=== PATIENT | female | born 1955 | race Caucasian/White ===

== ENCOUNTER → 2023-09-03 19:14 | Outpatient (REF) | payer BC, SELFPAY | LOC: WDC 19:14 | PROVIDERS: ATTENDING PHYSICIAN Physician Assistant | DX: Z12.31 Encounter for screening mammogram for malignant neoplasm of breast (principal) | CPT/HCPCS: 77063; 77067 ==

== ENCOUNTER 2024-06-22 08:54 | Emergency (ER) | payer BC, SELFPAY ==
[2024-06-22 09:02] VITALS: BP 177/116
--- NOTE | 2024-06-22 09:57 | ED.GENMED ---
History of Present Illness
General
Chief Complaint: Abdominal Symptoms
Source: patient
Exam Limitations: none
Time Seen by Provider: 06/22/24 09:45
History of Present Illness
History of Present Illness:
68-year-old female presents with epigastric discomfort and vomiting with associated loose stools. This has been intermittent over the past month but worse recently. She did [place] and developed more ear discomfort.
Upon return here she was seen by the family doctor thought to have ear infection. She has been on Zithromax. She denies any blood in the vomit or the stool. The pain is made worse with eating. She denies associated chest pain or shortness of
breath.
Phy Exam
Physical Exam
Physical Exam:
General: Well-appearing female no acute respiratory distress
HEENT: Normocephalic atraumatic
Heart: Regular rate and rhythm no murmurs
Lungs: Clear no wheeze
Abdomen is soft tender to the epigastric region no guarding rebound normal bowel sounds nondistended
Extremities: No cyanosis or edema
Course
Orders/Labs/Results
Orders:
Orders
06/22/24 09:55
Norovirus by PCR Urgent
SHEEBA Source: Feces/Stool
Specimen Description:
STOOL [C difficile Antigen & Toxins] Urgent
SHEEBA Source: Feces/Stool
Specimen Description:
Stool Culture Urgent
SHEEBA Source: Feces/Stool
Specimen Description:
0.9% Sodium Chloride 1000 ml [Nss] 1,000 ml IV BOLUS
Famotidine [Pepcid] 20 mg IV NOW STA
Ondansetron Injectable [Zofran] 4 mg IV NOW STA
US Abdomen Complete/Upper Urgent
Comment:
Reason For Exam: epigastric pain
06/22/24 10:11
Complete Blood Count/With Diff Urgent
06/22/24 11:18
Comprehensive Metabolic Panel Urgent
Lipase Urgent
Abnormal Lab Results
06/22/24 06/22/24
10:11 11:18
Absolute Neuts (auto) 8.0 H 10^3/uL
(1.4-6.5)
Absolute Lymphs (auto) 0.9 L 10^3/uL
(1.2-3.4)
Neutrophils % 83.7 H %
(42.2-75.2)
Lymphocytes % 9.8 L %
(20.5-51.1)
Creatinine 0.5 L mg/dL
(0.6-1.0)
Glucose 115 H mg/dl
(70-99)
06/22/24 10:11
06/22/24 11:18
Vital Signs
Initial and Last Documented VS:
Initial Vital Signs
Temp Pulse BP Pulse Ox
98.3 F 101 177/116 97
06/22/24 09:02 06/22/24 09:02 06/22/24 09:02 06/22/24 09:02
Last Documented Vital Signs
Temp Pulse Resp BP Pulse Ox
98.3 F 82 17 111/76 98
06/22/24 09:02 06/22/24 11:45 06/22/24 11:45 06/22/24 11:00 06/22/24 10:27
MDM/Problems Addressed
Differential Diagnosis Includes:
Patient with epigastric pain vomiting and diarrhea. Consider gastritis versus viral illness versus biliary colic and electrolyte abnormalities will check labs. Stool studies ordered if patient able to go. Fluids Zofran Pepcid ordered and will
start with ultrasound of the abdomen
*Critical Care Note
Total Time (30-74mins, 75-104mins- exclusive of procedures): Not Applicable
Update Note
Update Note:
Patient reexamined appears well labs reviewed without significant finding. Patient did relate that her friends she spent some time with last week also sick with similar symptoms including vomiting and diarrhea. Most likely a viral related issue.
No stool sample provided today. Ultrasound was negative. Stable for discharge. Will prescribe Zofran if needed.
ED Attending Note
-
Portions of this chart may have been created with voice recognition software.� Occasional wrong word or��sound alike� substitutions may have occurred due to the inherent limitations of voice recognition software.
Discharge Plan
Departure
Patient Disposition: Home (Routine Discharge)
Date of Disposition: 06/22/24
Time of Disposition: 13:17
Patient with high blood pressure during this ER visit?: No
Discharge Problem:
Vomiting
Instructions: Nausea and Vomiting, Adult (DC)
Prescriptions:
New
ondansetron 4 mg tablet,disintegrating
4 mg PO Q8H PRN (Reason: nausea and vomiting) Qty: 10 0RF
No Action
echinacea 400 MG capsule
400 mg PO DAILY
amlodipine [Norvasc] 5 MG tablet
5 mg PO DAILY
garlic 500 MG capsule
1,500 mg PO DAILY
lorazepam 0.5 MG tablet
0.5 mg PO PRN PRN (Reason: anxiety)
albuterol sulfate 1 PUFF HFA aerosol inhaler
2 puff inhalation PRN PRN (Reason: sob)
[id number]-[id number]-[id number] [Airborne (lysine HCl)] 1 EACH tablet, effervescent
1 ea PO DAILY
hydrochlorothiazide 12.5 MG tablet
12.5 mg PO DAILY
[id number]-epa-fish oil 1 EACH capsule,delayed release(DR/EC)
1 ea PO DAILY
turmeric 400 MG capsule
800 mg PO DAILY
Complete B 250 MG Tab
1 tab PO DAILY
Quercetin & Bromelain 1 TAB Tab
1 tab PO DAILY
Vitamin B12 500 MCG Tab
1 tab PO DAILY
ondansetron [Zofran ODT] 8 MG tablet,disintegrating
4 mg PO Q8HPRN PRN (Reason: nausea) Qty: 9 0RF
Rx Instructions:
1 every 8 hour as needed for nausea
oxycodone 5 MG tablet
5 mg PO Q4HPRN PRN (Reason: pain) Qty: 60 0RF
Rx Instructions:
1-2 every 4-6 hour as needed for pain
sennosides-docusate sodium [Senna-S] 1 EACH tablet
1 ea PO BID Qty: 60 0RF
aspirin 325 MG tablet,delayed release (DR/EC)
325 mg PO DAILY Qty: 30 0RF
Rx Instructions:
one daily to prevent blood clots
docusate sodium [Colace] 100 MG capsule
100 mg PO BID Qty: 60 0RF
acetaminophen [Tylenol Arthritis] 650 MG tablet extended release
650 mg PO Q4HPRN PRN (Reason: pain) Qty: 60 0RF
Rx Instructions:
1 every 4 hours as needed for pain
DO NOT EXCEED 4000mg in a 24 HOUR PERIOD
Referrals:
Stef Grewal MD [Family Provider] -
Activity Restrictions/Additional Instructions:
Drink plenty clear liquids. Use Zofran if needed for nausea.
Interventions
Interventions:
*Risk Screen - Suicide Last Done: 06/22/24 10:00
*General Assessment Last Done: 06/22/24 10:00
*Neglect/Abuse Screening Last Done: 06/22/24 10:00
ED- Fall Risk Assessment Last Done: 06/22/24 10:27
*ED COVID-19 Vaccine History Last Done: 06/22/24 10:03
ZQ-Nsyaar-Sqvyvpanuq Assessment Last Done: 06/22/24 10:27
Discharge Date and Time
Print Language: YORUBA
[2024-06-22 10:00] VITALS: BMI 36.2
[2024-06-22] MEDS: PEPCID 20 MG IV (10:03)
[2024-06-22] MEDS: ZOFRAN 4 MG IV (10:03)
[2024-06-22] MEDS: NSS 1000 IV (10:09)
[2024-06-22 10:11] VITALS: BP 166/108
[2024-06-22 10:17] LABS: % Basophils 0.2 % (0-2); % Eosinophils 0.6 % (0-6); % Immature Granulocytes 0.3 % (0-0.5); % Lymphocytes 9.8 % (20.5-51.1); % Monocytes 5.4 % (1.7-9.3); % Neutrophils 83.7 % (42.2-75.2); Absolute Eosinophils 0.1 10^3/uL (0-0.7); Absolute Lymphocytes 0.9 10^3/uL (1.2-3.4); Absolute Monocytes 0.5 10^3/uL (0.1-0.6); Hematocrit 43.7 % (37.0-47.0); Hemoglobin 14.7 g/dL (12.0-16.0); Mean Corp Hgb Conc. 33.6 g/dL (33.0-37.0); Mean Corpuscular Hgb 30.6 pg (27.0-31.0); Mean Platelet Volume 9.4 fL (7.4-10.4); Nucleated Red Blood Cells % 0 %; Platelet Count 214 10^3/uL (130-400); White Blood Cell Count 9.5 10^3/uL (4.8-10.8)
[2024-06-22 11:00] VITALS: BP 111/76
[2024-06-22 12:06] LABS: ALT (SGPT) 26 U/L (0-35); AST (SGOT) 26 U/L (14-36); Albumin 3.9 g/dl (3.5-5.0); Alkaline Phosphatase 65 U/L (38-126); Blood Urea Nitrogen 17 mg/dl (7-17); Calcium 8.9 mg/dl (8.4-10.2); Carbon Dioxide 30 mmol/L (22-30); Chloride 102 mmol/L (98-107); Estimated Creatinine Clearance 108 ml/min; Glucose 115 mg/dl (70-99); Sodium 138 mmol/L (135-145); Total Bilirubin 0.2 mg/dl (0.2-1.3); Total Protein 6.6 g/dl (6.3-8.2); eGFR > 60.00
[2024-06-22 12:46] LABS: Lipase 69 U/L (23-300)
[2024-06-22 13:36] VITALS: BP 100/61
== END 2024-06-22 13:38 | disposition home or self-care (01) ==
LOC: EMR 08:54
PROVIDERS: Physician Assistant; EMERGENCY PHYSICIAN Emergency Medicine; FAMILY PHYSICIAN Family Medicine
DX: R11.2 Nausea with vomiting, unspecified (principal); R10.13 Epigastric pain
CPT/HCPCS: 99284; 96374; 96375; 96361; 76700; 80053; 83690; 85025